=== PATIENT | female | born 1955 | race Caucasian/White ===

== ENCOUNTER 2024-10-06 07:25 | Day surgery (SDC) | payer MEDICARE, MEDICAID, SELFPAY ==
--- NOTE | 2024-10-03 10:36 | EKG_ITS ---
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
[2024-10-03 11:48] LABS: Alanine Aminotransferase 13 U/L (10-49); Albumin, Serum 4.6 gm/dL (3.4-4.8); Albumin/Globulin Ratio 1.7 (1.2-2.2); Alkaline Phosphatase 61 U/L (46-116); Anion Gap 8 (7-16); Aspartate Amino Transferase 19 U/L (0-34); BUN/Creatinine Ratio 11 Ratio (12-20); Bilirubin,Total 0.4 mg/dL (0.3-1.2); Blood Urea Nitrogen 8 mg/dL (9-23); Calcium 9.2 mg/dL (8.3-10.6); Calcium (Corrected) 9.2 mg/dL (8.5-10.1); Carbon Dioxide 27.4 mMol/L (20.0-31.0); Chloride 101 mMol/L (98-107); Creatinine (Component) 0.7 mg/dL (0.6-1.3); Globulin 2.7 gm/dL (2.3-3.5); Glucose 103 mg/dL (74-106); Osmolality,Calculated 270 (275-295); Sodium 136 mMol/L (136-145); Total Protein 7.3 gm/dL (5.7-8.2); eGFR > 60 See Note
[2024-10-03 12:10] LABS: INR 0.9 (0.9-1.3); Partial Thromboplastin Time 28.5 Seconds (22.0-36.0); Prothrombin Time 10.4 Seconds (9.0-12.2)
[2024-10-03 13:36] VITALS: BMI 22.1
[2024-10-06] VITALS (8 sets, daily range): BP systolic 113–145; BP diastolic 62–94; PULSE 93–135; RESP 18–25; TEMP 36.2–36.6; O2SAT 91–100; BMI 22.1
[2024-10-06] MEDS: SODIUM CHLORIDE RT SOL 0.9% 3 ML NEBU INH (08:43)
[2024-10-06] MEDS: ALBUTEROL RT 2.5 MG/0.5 ML NEBU INH (08:43)
[2024-10-06] MEDS: RINGERS LACTATED 1000 ML 1,000 ML 125 ML IV (09:14)
--- NOTE | 2024-10-06 10:49 | SUR.PHASEII ---
1000 Pt remains awake and oriented. Denies pain or SOB. Repositioned for comfort. Pt requesting 02 to be weaned off. 02 sats at 95% 1L/NC. Mignon PO fluids. 1030 Pt cont to do well. No complaints. Saturating at 94-95% on room air. Amb with use of cane to bathroom (same as preop).Able to dress self. 1045 Pt assessment unchanged. No complaints. DC instructions given to pt and sister, Victorina. Both state understanding. Pt meets dc criteria-to home.
== END 2024-10-06 10:45 | disposition home or self-care (01) ==
PROVIDERS: PCP Family Medicine; Referring Provider Specialist; Visit Provider Specialist
PROC: 0DBE8ZX Excision of Large Intestine, Via Natural or Artificial Opening Endoscopic, Diagnostic (ICD-10-PCS; CPT 45380; principal; 2024-10-06 08:30)
DX: K51.00 Ulcerative (chronic) pancolitis without complications (principal); K63.3 Ulcer of intestine; K62.6 Ulcer of anus and rectum; K64.9 Unspecified hemorrhoids; Z01.810 Encounter for preprocedural cardiovascular examination
CPT/HCPCS: 45380; 36415; 80053; 85610; 85730; 93005; A4649; J7120